=== PATIENT | female | born 1955 | race Caucasian/White ===

== ENCOUNTER 2019-11-24 06:51 | Emergency (ER) | payer OTHER ==
[~2019-11-24] VITALS: Ht 167.6 cm; Wt 72.0 kg
[2019-11-24] MEDS ORDERED: MORPHINE SULFATE 10 MG/ML CPJ IM ONE ×2 (07:45→09:45)
[2019-11-24] MEDS ORDERED: LIDOCAINE 1%/EPI 1:100,000 10 ML VIAL IJ ONE (11:15)
[2019-11-24] MEDS ORDERED: TETANUS, DIPHTHERIA, PERTUSSIS VAC/PF 0.5ML (>7YR OLD) IM ONE (11:15)
[2019-11-24] MEDS ORDERED: AMOXICILLIN/POTASSIUM CLAVULANATE 875/125MG TAB PO ONE (11:15)
[2019-11-24] MEDS ORDERED: LIDOCAINE HCL/EPINEPHRINE 1%-EPI 1:100,000 20 ML VIAL INFIL ONE (11:45)
[2019-11-24] MEDS ORDERED: ONDANSETRON 4MG ODT PO ONE (13:15)
[2019-11-24 14:23] VITALS: BP 127/65
== END 2019-11-24 13:30 | disposition left against medical advice (07) ==
LOC: ER 06:51
DX: S02.85XA Fracture of orbit, unspecified, initial encounter for closed fracture (principal); S43.004A Unspecified dislocation of right shoulder joint, initial encounter; Y08.89XA Assault by other specified means, initial encounter; Y93.89 Activity, other specified; Y92.9 Unspecified place or not applicable
CPT/HCPCS: 29105; 70450; 70486; 73020; 73030; 90471; 90715; 96372; 99285; J2270; J3490

== ENCOUNTER 2019-11-30 13:13 | Emergency (ER) | payer OTHER ==
[~2019-11-30] VITALS: Ht 162.6 cm; Wt 61.0 kg
[2019-11-30 13:25] VITALS: BP 128/47
== END 2019-11-30 17:50 | disposition home or self-care (01) ==
LOC: ER 13:13
DX: Z48.00 Encounter for change or removal of nonsurgical wound dressing (principal)
CPT/HCPCS: 99281